=== PATIENT | male | born 1960 | race Caucasian/White ===

== ENCOUNTER 2018-08-13 01:45 | Outpatient (CLI) | payer BC, SELFPAY ==
[2018-08-13 10:56] LABS: Abs Immature Grans 0.01 k/cumm (0.0-0.09); Absolute Basophil Count 0.05 k/cumm (0.0-0.2); Absolute Eosinophil Count 0.23 k/cumm (0.0-0.7); Absolute Lymphocyte Count 1.52 k/cumm (1.2-3.4); Absolute Monocyte Count 0.56 k/cumm (0.11-0.7); Absolute Neutrophil Count 3.05 k/cumm (1.2-6.7); Basophils % 0.9; Eosinophils % 4.2; HCT 46.5 % (40.0-50.0); HGB 15.5 g/dL (13.5-17.5); Immature Grans % 0.2; Mean Corp. HGB Concentration 33.3 g/dL (32.0-36.0); Mean Corpuscular Hemoglobin 30.2 pg (27.0-33.0); Mean Corpuscular Volume 90.6 fL (80-95); Mean Platelet Volume 11.3 fL (8.0-11.0); Monocytes % 10.3; Neutrophils % 56.4; Platelet Count 292 x1000/uL (130-400); RBC 5.13 m/cumm (4.50-6.00); RBC Distribution Width 13.5 % (11.8-14.1); White Blood Cell Count 5.42 k/cumm (4.4-10.8)
[2018-08-13 11:23] LABS: ALT 76 U/L (12-78); AST 49 U/L (15-37); Albumin 3.8 g/dL (3.4-5.0); Alkaline Phosphatase 111 U/L (46-116); Anion Gap 8.7 mmol/L (3-11); BUN 12 mg/dL (7-18); Bilirubin, Total 0.6 mg/dL (0.2-1.0); CO2 28.3 mmol/L (21.0-32.0); Calcium 9.5 mg/dL (8.5-10.1); Chloride 104 mmol/L (98-107); Glucose 102 mg/dL (70-100); Potassium 4.2 mmol/L (3.5-5.1); Sodium 141 mmol/L (136-145); Total Protein 7.4 g/dL (6.4-8.2)
[2018-08-13 11:39] LABS: Hemoglobin A1C 5.9 % (4.5-6.2)
[2018-08-14 10:12] LABS: PSA, Screening 0.5 ng/ml (0-4.5)
== END 2018-08-13 02:05 ==
PROVIDERS: PCP Family Medicine; Visit Provider Family Medicine
DX: R73.9 Hyperglycemia, unspecified (principal); R10.13 Epigastric pain; R10.31 Right lower quadrant pain; R63.4 Abnormal weight loss; R68.81 Early satiety; Z12.5 Encounter for screening for malignant neoplasm of prostate
CPT/HCPCS: 36415; 80053; 84153; 83036; 85025

== ENCOUNTER 2018-09-08 00:34 | Outpatient (CLI) | payer BC, SELFPAY ==
--- NOTE | 2018-09-08 05:38 | DI.US_ITS ---
SYMPTOM/DIAGNOSIS: RUQ PAIN, R10.11, RLQ PAIN ABDOMEN ULTRASOUND: There is a mildly heterogeneous and increased echogenic appearance of the liver with decrease through transmission raising the possibility of hepatic steatosis. Dependent portions of the liver are not entirely visualized No evidence of cholelithiasis or biliary dilatation. Pancreas appears intact as visualized. Incidental 13 mm. right renal mid pole cyst noted. Otherwise the kidneys are unremarkable with no evidence of hydronephrosis or nephrolithiasis. Spleen is unremarkable. Abdominal aorta and IVC are of normal diameter. CONCLUSION: Question hepatic steatosis. The examination is otherwise within normal limits with no evidence of cholelithiasis. Evaluation of the patient's area of discomfort in the right lower quadrant shows no gross hernia. Additional evaluation with CT could be considered if there is clinical suspicion of a hernia or appendicitis.
== END 2018-09-08 00:54 ==
PROVIDERS: PCP Family Medicine; Visit Provider Family Medicine
DX: R10.11 Right upper quadrant pain (principal); K76.0 Fatty (change of) liver, not elsewhere classified; R10.31 Right lower quadrant pain
CPT/HCPCS: 76700

== ENCOUNTER 2018-09-26 06:09 | Day surgery (SDC) | payer BC, SELFPAY ==
[2018-09-26 06:31] VITALS: BP 141/104; PULSE 72; RESP 16; TEMP 35.7; O2SAT 94
[2018-09-26] MEDS: Lactated Ringers 1,000 ML 80 ML IV (06:57)
--- NOTE | 2018-09-26 07:39 | STOM_PTH ---
PATIENT: BALDO COLEMAN LOC: [facility] U#:[id number] AGE/SX: 58/M ROOM: RE09/26/[address]: Madison Dumont : 1960 BED: DIS: 09/26/2018 SPEC #: [id number] RECD: 09/26/18 13:04 STATUS: DEMETRI TAYLOR #: [id number] EYAL: 09/26/18 07:[address]: Madison Dumont DEPT: Surgical Specimen RECD BY: Santa Colbert ENTERED: 09/26/18 13:06 SP TYPE: STOMACH OTHR DR: Rachid Major MD Tissues: 1 - BIOPSY BOWEL 2 - STOMACH BIOPSY 3 - STOMACH BIOPSY 4 - ESOPHAGUS BIOPSY 5 - ESOPHAGUS BIOPSY 6 - BIOPSY BOWEL 7 - BIOPSY BOWEL Procedures: GROSS AND MICRO LEVEL 4 Comments: [id number]
--- NOTE | 2018-09-26 08:31 | W.PM.ENDDOP ---
Date of service: 09/26/18 Time of Service: 08:31 Endoscopy Report DATE OF PROCEDURE: 09/26/18 PRE-OP DIAGNOSIS: abdom pain/unexplained wt loss POST-OP DIAGNOSIS: other (gsatritis/esophagitis/diverticulosis/polypsx3) PROCEDURE: egd w/ bx CE w/ polypectomy x3- cold biter SURGEON: Madison Dumont ANESTHESIA: GETA ESTIMATED BLOOD LOSS: 2 PATHOLOGY: other COMPLICATIONS: None INDICATIONS: unexplained wt loss RLQ pain COLONOSCOPY RETRACTION TIME: 12 mins PROCEDURE DESCRIPTION: After informed consent was obtained the patient was take to the procedure room and placed in a supine position. Monitors were applied and a time out was done. The patients name, date of , procedure type, allergies to medications and metal in their body was reviewed. A bite block was placed and the patient was sedated. Once sedated and comfortable the gastroscope was advanced through the oropharynx which was grossly normal into the esophagus. The proximal and mid-esophagus were nl. In the distal esophagus there was mild esophagitis and changes that coud be consitent w/ Foss's- as viewed under NBI The scope was advanced into the stomach and through the pylorus into the 3rd portion of the duodenum. The duodenum was noted to be nl. Biopsies were done, aol specimen retrieved and no bleeding noted. The scope was retracted back into the stomach and biopsies were done to rule out H. pylori. There were no ulcers. At the antrum- there is moderate gastritis in a striped pattern. The scope was retroflexed. The cardia and fundus were noted to be normal. There no hiatal hernia noted. The scope was retracted back into the esophagus and biopsies were done of the GE junction to rule out Foss's. The Z line was regular. The GE junction was at 39 cm. The scope was removed adn exchanged. After informed consent was obtained the patient was taken to the procedure room and placed in a left decubitous position. Monitors were applied and a time out was done. The patients name, date of , procedure, allergies to medications and metal in their body was reviewed. The patient was then sedated. Once sedated and comfortable a rectal exam was done. External exam was normal. Internal exam revealed a normal sphincter tone and no palpable masses. The scope was then introduced and retrofelexed. no internal hemorrhoids were identified. The scope was then advanced to the cecum mild difficulty. The TI and appendiceal orifice were identified. The prep wasgood. The scope was then slowly retracted over 12 minutes back into the rectum. Polyps were removed at 50cm/transverse x1 w/ cold biter. and x3 @ 40cm/ descending w/ cold biter. He has severe diverticular Dx - mostly concentrated in sigmoid colon. There are a few on the right side as well. No signs of active bleeding or infection. All specimens retrieved and there was no bleeding noted. The scope was removed and the patient was woken up and taken back to Same day surgery in stable condition. The patient tolerated the procedure well and there were no immediate complications. Follow up: The patient should follow up in 3-5 path pd, years unless they develop changes in bowel habits or other new gastrointestinal complaints.
--- NOTE | 2018-09-26 08:39 | PDOC.DSDIS_ITS ---
Discharge Plan Disposition Patient Disposition: HOME Condition: Good Discharge Details Reason For Visit: EGD w/ Bx and CE w/ polypectomy x4 Attending Provider: Madison Dumont Primary Care Provider: Rachid Major Home Meds and New Rx's Prescriptions: Continued vitamin B complex [B Complex-Vitamin B12] tablet 1 tab PO DAILY RF: 0 multivitamin Tablet 1 tab PO DAILY RF: 0 cyanocobalamin (vitamin B-12) 1,000 mcg Tablet 1,000 mcg PO DAILY RF: 0 Discontinued omeprazole 40 mg capsule,delayed release(DR/EC) 40 mg PO DAILY Qty: 30 RF: 5 aspirin [Adult Low Dose Aspirin] 81 mg tablet,delayed release (DR/EC) 81 mg PO DAILY RF: 0 polyethylene glycol 3350 17 gram/dose powder 238 g PO ONCE Qty: 238 RF: 0 bisacodyl [Dulcolax (bisacodyl)] 5 mg tablet,delayed release (DR/EC) 5 mg PO ONCE Qty: 4 RF: 0 aspirin 325 mg Tablet 325 mg PO DAILY RF: 0 Discharge Instructions Instructions: Diverticulosis (GEN), Diverticulosis Diet (GEN), High Fiber Diet (DC) Additional Instructions: Findings:esophagitis/gastritis/diverticulosis/colon polyps Follow up:repeat colonoscopy in 3-5 5yrs- path pd We will send a letter w/ the results of the polyp pathology in 2- 3 wks -stop ASA permanently -no NSIAD's for 2 wks b/c of the Bx and polyps removed -Rx: protonix and carafate for stomach -Continue with lifestyle modifications: avoid: alcohol, tobacco products, Aspirin or NSAID's (ibuprofen, Motrin, Naprosyn, aleve, etc), soda pop/any carbonated beverages, caffeine (including tea & chocolate), and acidic foods, (tomatoes, citrus, onions, peppermints) spicy or fried/fatty foods. Do not lie down for 30 minutes after eating, and do not eat 2 hours prior to bedtime. Avoid wearing tight fitting clothing/ belts. -high fiber diet for colon and avoid staining to move bowels. Please call if you develop: fevers >101.5 Nausea or Vomiting Abdominal pain that is not transient DAY SURGERY UNIT POST COLONOSCOPY INSTRUCTIONS 1. Because there will be medication in your system for the next 24 hours, you may feel a little sleepy. Your coordination will be affected. Therefore: a. Do not drive or operate dangerous equipment for 24 hours. b. Do not drink alcohol beverages for 24 hours (not even beer). c. Plan to go home and rest for the day. 2. Generally there are no restrictions on your activity after a day or so has gone by, but you may feel a bit fatigued for a few days. 3 After you arrive home you may have a light meal and return to a normal diet as you can tolerate it without feeling sick to your stomach. 4. After surgery, you may feel pain or discomfort. This should be only transient, but if it persists please contact your doctor. 5. If there are any questions regarding the findings of your procedure, please feel free to contact your doctor. 6. If you are unable to contact your doctor with a problem, contact the hospital at [phone]. 7. Continue all your regular medications unless directed otherwise. I understand the above instructions and have no questions. Signature of Patient or Responsible Adult Escort Date/Time Name of Responsible Adult Escort Signature of Nurse Date/Time Activity:: no heavy lifting or strenuous activity x 24 hrs Shower/Bathe:: 24 hours Diet:: sm lt meals x 24 hrs Discharge Orders Discharge Orders: Discharge Order (Routine); Ordered 09/26/18 Ordered By: Madison Dumont DS: Diagnosis Discharge Diagnosis (1) Diverticulosis of sigmoid colon: Status: Acute (2) Gastritis determined by endoscopy: Status: Acute (3) Esophagitis determined by endoscopy: Status: Acute (4) Adenomatous colon polyp: Status: Acute
[2018-09-26 09:00] VITALS: BP 137/85; PULSE 61; RESP 18; TEMP 35.4; O2SAT 97
== END 2018-09-26 09:46 | disposition home or self-care (01) ==
PROVIDERS: PCP Family Medicine; Visit Provider Surgery
PROC: (CPT 45380; principal; 2018-09-26 07:30)
DX: Z12.11 Encounter for screening for malignant neoplasm of colon (principal); D12.3 Benign neoplasm of transverse colon; K63.5 Polyp of colon; K57.30 Diverticulosis of large intestine without perforation or abscess without bleeding; Z86.010 Personal history of colon polyps
CPT/HCPCS: 45380; 43239; 88305

== ENCOUNTER 2018-10-08 00:41 | Outpatient (CLI) | payer BC, SELFPAY ==
--- NOTE | 2018-10-08 09:16 | DI.CT_ITS ---
SYMPTOMS/DIAGNOSIS: RT LOWER PAIN/PELVIC PAIN, R10.31, RLQ PAIN CT EXAMINATION OF THE ABDOMEN AND PELVIS: The study was carried out with an intravenous administration of 100 cc's of Omnipaque 350 and oral ingestion of dilute Omnipaque. The lung bases are unremarkable. A fatty liver is demonstrated. The gallbladder is normal. There is no evidence of cholelithiasis or ductal dilatation. Fatty infiltration of the pancreas is identified. The spleen is unremarkable. The kidneys and adrenals are normal. There is no evidence of bowel obstruction. No localized inflammatory process is evident and there is nothing to suggest an acute appendix. Note is made of diverticulosis involving the distal descending and rectosigmoid colon. There is no evidence of diverticulitis. The bladder is unremarkable. The reproductive organs as visualized are unremarkable. There is a small fat containing left inguinal hernia. There are atherosclerotic changes involving the aorta without evidence of an aneurysm. There is nothing to suggest free air or free fluid in the intraperitoneal space. Degenerative changes involving the lumbar spine are identified with narrowed vacuum discs and associated degenerative bony changes at L 5 - S 1 and L 2 - 3. SUMMARY: A fatty liver is demonstrated. There is no evidence of an acute appendix. Diverticulosis is demonstrated without evidence of diverticulitis.
[2018-10-08] MEDS: Omnipaque 350 MG/ML 100 ML BTL IV (11:30)
[2018-10-08] MEDS: Breeza Beverage 473 ML BTL PO ×2 (15:10→15:11)
[2018-10-08] MEDS: Omnipaque 350 MG/ML 50 ML BTL PO (15:11)
== END 2018-10-08 01:01 ==
PROVIDERS: PCP Family Medicine; Visit Provider Family Medicine
DX: R10.31 Right lower quadrant pain (principal); R10.2 Pelvic and perineal pain; K76.0 Fatty (change of) liver, not elsewhere classified; K57.30 Diverticulosis of large intestine without perforation or abscess without bleeding; K40.90 Unilateral inguinal hernia, without obstruction or gangrene, not specified as recurrent
CPT/HCPCS: 74177; J3490; Q9967

== ENCOUNTER 2018-11-19 09:56 | Outpatient (CLI) | payer BC, SELFPAY ==
[2018-11-19 11:41] LABS: ALT 48 U/L (12-78); AST 27 U/L (15-37); Albumin 2.1 g/dL (3.4-5.0); Alkaline Phosphatase 129 U/L (46-116); Bilirubin, Direct 0.14 mg/dL (0.00-0.20); Bilirubin, Total 0.5 mg/dL (0.2-1.0); Total Protein 7.1 g/dL (6.4-8.2)
== END 2018-11-19 10:16 ==
PROVIDERS: PCP Family Medicine; Visit Provider Family Medicine
DX: R10.9 Unspecified abdominal pain (principal)
CPT/HCPCS: 36415; 80076

== ENCOUNTER 2019-12-24 04:39 | Outpatient (CLI) | payer BC, SELFPAY ==
[2019-12-24 09:45] LABS: Abs Immature Grans 0.02 10^3/uL (0.0-0.06); Absolute Basophil Count 0.06 10^3/uL (0.0-0.2); Absolute Eosinophil Count 0.18 10^3/uL (0.0-0.7); Absolute Lymphocyte Count 1.53 10^3/uL (1.2-3.4); Absolute Monocyte Count 0.63 10^3/uL (0.1-0.8); Absolute Neutrophil Count 2.75 10^3/uL (1.2-6.7); Basophils % 1.2; Eosinophils % 3.5; HCT 45.7 % (40.0-50.0); HGB 15.2 g/dL (13.5-17.5); Immature Grans % 0.4; Lymphocytes % 29.6; MCH 29.9 pg (27.0-33.0); MCHC 33.3 % (32.0-36.0); MCV 89.8 fL (80-95); MPV 9.5 fL (8.0-11.0); Monocytes % 12.2; Neutrophils % 53.1; Nucleated RBC 0 %; Platelet Count 281 10^3/uL (130-400); RBC 5.09 10^6/uL (4.36-5.78); RDW 12.6 % (11.8-14.1); RDW-SD 41.8 fL; WBC 5.17 10^3/uL (4.4-10.8)
[2019-12-24 11:10] LABS: ALT 34 U/L (16-63); AST 20 U/L (15-37); Albumin 3.8 g/dL (3.4-5.0); Alkaline Phosphatase 122 U/L (46-116); Anion Gap 6.8 mmol/L (3-11); BUN 12 mg/dL (7-18); Bilirubin, Total 0.6 mg/dL (0.2-1.0); CO2 29.2 mmol/L (21.0-32.0); CREATININE 0.77 mg/dL (0.70-1.30); Calcium 8.8 mg/dL (8.5-10.1); Calculated LDL 113 mg/dL (<100); Chloride 105 mmol/L (98-107); Cholesterol 186 mg/dL (<200); Glucose 93 mg/dL (74-106); HDL Cholesterol 60 mg/dL (40-60); Potassium 3.9 mmol/L (3.5-5.1); Sodium 141 mmol/L (136-145); Total Protein 7.1 g/dL (6.4-8.2); Triglyceride 68 mg/dL (<150)
== END 2019-12-24 04:59 ==
LOC: LOS 04:40 → LBO 09:44
PROVIDERS: PCP Family Medicine; Visit Provider Family Medicine
DX: R60.0 Localized edema (principal); R07.2 Precordial pain; Z01.818 Encounter for other preprocedural examination
CPT/HCPCS: 36415; 80053; 80061; 85025

== ENCOUNTER 2019-12-28 00:09 | Outpatient (CLI) | payer BC, SELFPAY ==
--- NOTE | 2019-12-28 06:45 | DI.NM_ITS ---
APPROVED REPORT Exam: Pharmacologic Patient Location: Out-Patient Room/Bed: Stress Nurse: Jennifer Barba RN BMI: 33.05 Baseline Rhythm: Sinus Bradycardia, RBBB Indications: Patient testing today for preoperative for bilateral knee surgery and abnormal EKG on . Patient also reports left sided chest sharp pain and bilateral pedal edema, greater in the r ight leg since arthroscopy of his knees. He denies any other associated symptoms. Patient is a poor h istorian. Medical History Medical History: DOROTHY???with CPAP use, Depression, Current Sobriety since 1990. Cardiac Medications: Aspirin. Allergies: Vicryl. Cardiac Risk Factors: FHX of CAD Previous Cardiac Procedures: None per patient report. Pretest Chest Pain Characteristics: Today patient reports left sided chest ???congestion/pressure??? (1 to 05/18), ???it???s just different???. Exercise History: Physically active Physical Disabilities: Bilateral knee pain. Lung Sounds: Clear to auscultation Heart Sounds: Regular Stress Test Details Test: Pharmacologic stress testing performed using 0.4 mg of regadenoson per 5 mL given IV over 10 s econds. Nuclear Acquisition: Rest Tc-99m/Stress Tc-99m 1 day Rest Isotope: Tc-99m Sestamibi. Dose: 11.5 Date: 12/28/2019 Injection Time: 0900 Stress Isotope: Tc-99m Sestamibi. Dose: 36.0 Date: 12/28/2019 Injection Time: 1038 HR Resting HR Supine: 59 bpm Max Heart Rate (APMHR): 159 bpm Target HR (85% APMHR): 135 bpm Max HR Achieved: 83 bpm % of APMHR: 52 BP Resting BP Supine: 146/78 mmHg Max BP: 150/72 mmHg ECG Resting ECG: Sinus Bradycardia, RBBB Stress ECG: Sinus Rhythm ST Change: Normal Arrhythmia: None Recovery ECG: Sinus Rhythm Recovery ST Change: Normal Recovery Arrhythmia: None Clinical Stress Symptoms: knifelike left sided chest pain (4/10) at 1 minute 49 secoonds post Lexiscan injec tion, subsiding to 1/10 at approximately 12 minutes post Lexiscan injection. Stress ECG Conclusion 1. This is a pharmacological stress test. 2. The patient no symptoms suggestive of ischemia 3. EKG portion of this exam is nondiagnostic. Stress Test Summary STAGE HR BP Symptoms NOTES Supine 59 146/78 1 min post Lexiscan injection 82 138/84 3 min post Lexiscan injection 69 142/80 6 min post Lexiscan injection 71 150/72 9 min post Lexiscan injection 64 144/78 12 min post Lexiscan injection 62 148/80 MPI Conclusion Patient's ejection fraction was 47% with stress. There were no wall motion abnormalities. There was no evidence of ischemia on the imaging portion of the exam. This represents a normal SPECT stress test. Radiologist Interpretation Radiologist Interpretation by: Vahid Dozier MD Interpretation Date/Time: 12/28/2019 15:50:40
[2019-12-28] MEDS: Regadenoson 0.4 MG/5 ML SYR IVP (11:28)
== END 2019-12-28 00:29 ==
PROVIDERS: PCP Family Medicine; Visit Provider Family Medicine
DX: R94.31 Abnormal electrocardiogram [ECG] [EKG] (principal); Z01.810 Encounter for preprocedural cardiovascular examination; R07.9 Chest pain, unspecified; R60.0 Localized edema; Z82.49 Family history of ischemic heart disease and other diseases of the circulatory system
CPT/HCPCS: 78452; 93017; J2785

== ENCOUNTER 2020-01-01 07:19 | Outpatient (CLI) | payer BC, SELFPAY ==
[2020-01-04 15:10] LABS: Patient Race White; SARS-CoV-2 RNA Undetected (Undetected); SARS-CoV-2 Specimen Source Nasopharynx
== END 2020-01-01 07:39 ==
PROVIDERS: PCP Family Medicine; Visit Provider Nurse Practitioner Family
DX: J06.9 Acute upper respiratory infection, unspecified (principal)
CPT/HCPCS: U0003

== ENCOUNTER 2020-03-11 04:33 | Outpatient (CLI) | payer BC, SELFPAY ==
--- NOTE | 2020-03-11 08:00 | DI.US_ITS ---
EXAM: US LOWER EXTREMITY VENOUS RT CLINICAL HISTORY: right calf pain.M79.604. TECHNIQUE: Lower extremity venous ultrasound performed using grayscale, color-flow, and spectral Do ppler analysis. COMPARISON: No exams were available for comparison FINDINGS: The common femoral, femoral and popliteal veins demonstrate normal compressibility, augmentation, and color Doppler. The posterior tibial veins are patent. No saphenous vein thrombosis or other superfi cial venous thrombosis is seen. No hematoma or Vogt's cyst is seen. IMPRESSION: Negative lower extremity ultrasound. No evidence of DVT. DATA REPOSITORY:
== END 2020-03-11 04:53 ==
PROVIDERS: PCP Family Medicine; Visit Provider Nurse Practitioner Family
DX: M79.661 Pain in right lower leg (principal)
CPT/HCPCS: 93971